=== PATIENT | male | born 1990 | race Two or more races ===

== ENCOUNTER 2020-06-03 05:40 | Emergency (ER) | payer MEDICAID, OTHER ==
[~2020-06-03] VITALS: Ht 172.7 cm; Wt 81.6 kg
--- NOTE | 2020-06-03 05:45 | NUR ---
PT BIBEMS FOR BIZARRE BEHAVIOR S/P TAKING AN UNKNOWN PILL. PT DENIES SI/HI. PT AAOX4, RESPIRATIONS EVEN AND UNLABORED ON RA W/ NAD NOTED. PT CONNECTED TO THE SUBSTANCE ABUSE CLINICIAN AND POX.
--- NOTE | 2020-06-03 06:09 | NUR ---
PLANISHING PRESS OPERATOR AT BEDSIDE FOR BLOOD DRAW
[2020-06-03] MEDS ORDERED: OLANZAPINE 10 MG VIAL IM ONE ×2 (06:20→06:30)
[2020-06-03 06:27] LABS: BASOPHILS % (AUTO) 0.4 % (0.0-2.0); EOSINOPHILS % (AUTO) 0.1 % (0.0-6.0); HEMATOCRIT 43 % (39-51); HEMOGLOBIN 14.2 g/dL (13.5-17.5); LYMPHOCYTES # (AUTO) 1.8 /CMM (0.8-4.8); LYMPHOCYTES % (AUTO) 28.7 % (20.0-44.0); MEAN CORPUSCULAR HGB CONC 33 g/dl (31.0-36.0); MEAN CORPUSCULAR VOLUME 94 fL (80-96); MONOCYTES # (AUTO) 0.5 /CMM (0.1-1.30); MONOCYTES % (AUTO) 8.4 % (2.0-12.0); NEUTROPHILS # (AUTO) 3.9 /CMM (1.8-8.9); NEUTROPHILS % (AUTO) 62.4 % (43.0-81.0); PLATELET COUNT (AUTO) 240 /CMM (150-450); RED BLOOD CELL COUNT(AUTO) 4.53 MIL/uL (4.5-6.0); WHITE BLOOD COUNT (AUTO) 6.3 K/uL (4.3-11.0)
[2020-06-03 06:43] LABS: ALANINE AMINOTRANSFERASE 71 U/L (12-78); ALBUMIN 4.3 g/dL (3.4-5.0); ALCOHOL, BLOOD < 3 mg/dL (0-0); ALKALINE PHOSPHATASE 56 U/L (46-116); ASPARTATE AMINOTRANSFERASE 43 U/L (15-37); BILIRUBIN,DIRECT 0.5 mg/dL (0.0-0.2); BILIRUBIN,TOTAL 1.6 mg/dL (0.2-1.0); CALCIUM, SERUM 9.2 mg/dL (8.5-10.1); CARBON DIOXIDE 25 mmol/L (21-32); CHLORIDE 102 mmol/L (98-107); GLUCOSE 77 mg/dL (74-106); POTASSIUM 3.4 mmol/L (3.5-5.1); SODIUM SERUM 141 mmol/L (136-145); TOTAL PROTEIN, SERUM 8.2 g/dL (6.4-8.2); UREA NITROGEN, BLOOD 23 mg/dL (7-18)
[2020-06-03 06:46] LABS: ACETAMINOPHEN 0 ug/ml (10-30)
--- NOTE | 2020-06-03 07:17 | NUR ---
PT PLACED ON 2 LPM VIA N/C FOR SUPPLEMENTAL O2.
--- NOTE | 2020-06-03 13:00 | NUR ---
PT PROVIDED W/ MEAL TRAY.
--- NOTE | 2020-06-03 14:05 | NUR ---
PT IS AWAKE. VERBALLY RESPONSIVE. AMBULATORY TO THE BATHROOM. STEADY GAIT. DENIES HI/SI AWAITING PSYCH EVAL.
--- NOTE | 2020-06-03 14:58 | NUR ---
DAYO RN AT BEDSIDE FOR FOR PSYCH EVAL.
[2020-06-03 15:07] LABS: BILIRUBIN,URINE SMALL (NEGATIVE); COLOR,URINE YELLOW (YELLOW); LEUKOCYTE ESTERASE ,URINE NEGATIVE (NEGATIVE); NITRITE, URINE NEGATIVE (NEGATIVE); PROTEIN,URINE TRACE mg/dl (NEGATIVE); UGLUCOSE NEGATIVE (NEGATIVE); UROBILINOGEN,URINE 0.2 EU/dL (0.2)
[2020-06-03 15:18] LABS: BACTERIA,URINE None seen /HPF (None Seen); MUCUS,URINE Few /LPF (None Seen); RBC,URINE 0-2 /HPF (0-2); SQUAMOUS EPITHELIAL CELL,UR 0-2 /HPF (None Seen); WBC,URINE 0-2 /HPF (0-3)
--- NOTE | 2020-06-03 15:24 | NUR ---
RECEIVED RESULTS FROM MAIN LAB: RAPID COVID NEGATIVE
--- NOTE | 2020-06-03 17:47 | NUR ---
PT AWAKE. AAOX3. AMBULATORY W/ STEADY GAIT. DISCHARGE IN STABLE CONDITION.
[2020-06-03 17:48] VITALS: BP 112/66
== END 2020-06-03 17:49 | disposition home or self-care (01) ==
LOC: ER 05:43
DX: T65.91XA Toxic effect of unspecified substance, accidental (unintentional), initial encounter (principal); R41.82 Altered mental status, unspecified; Y92.89 Other specified places as the place of occurrence of the external cause; Z59.0 Homelessness; F15.10 Other stimulant abuse, uncomplicated; F11.10 Opioid abuse, uncomplicated; F12.10 Cannabis abuse, uncomplicated; Z20.822 Contact with and (suspected) exposure to COVID-19
CPT/HCPCS: 36415; 80048; 80076; 80299; 80307; 80320; 81001; 85025; 87426; 96372; 99285; C9803; J3490; G0480

== ENCOUNTER 2020-08-11 16:14 | Emergency (ER) | payer MEDICAID, SELFPAY ==
[~2020-08-11] VITALS: Ht 172.7 cm; Wt 72.6 kg
--- NOTE | 2020-08-11 16:20 | NUR ---
PT IS EATING, NOT YET READY READY TO BE TRIAGE
[2020-08-11 16:41] VITALS: BP 114/51
--- NOTE | 2020-08-11 17:00 | NUR ---
COVID SPECIMEN OBTAINED AND SENT TO LAB.
--- NOTE | 2020-08-11 17:04 | NUR ---
Patient given written and verbal discharge instructions. Patient verbalizes understanding of instructions. Patient is ambulatory with steady gait. Refuses offer of senior living placement. Patient given list of available shelters in surrounding area.
== END 2020-08-11 17:07 | disposition home or self-care (01) ==
LOC: ER 16:59
DX: J02.9 Acute pharyngitis, unspecified (principal); R05 Cough; R06.00 Dyspnea, unspecified; Z20.822 Contact with and (suspected) exposure to COVID-19

== ENCOUNTER 2020-08-16 14:58 | Emergency (ER) | payer SELFPAY ==
[~2020-08-16] VITALS: Ht 172.7 cm; Wt 86.2 kg
--- NOTE | 2020-08-16 15:18 | NUR ---
pt johnathan accompanied by pd. 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 pt appears to be drug intoxicated. pt verbally responsive but is acting bizzare and restless. awaiting yaquelin saldaña.
--- NOTE | 2020-08-16 16:06 | NUR ---
dr bradshaw at bedside for eval.
[2020-08-16 16:27] LABS: BASOPHILS # (AUTO) 0.3 /CMM (0.0-0.2); BASOPHILS % (AUTO) 1.7 % (0.0-2.0); EOSINOPHILS % (AUTO) 0.3 % (0.0-6.0); HEMATOCRIT 40 % (39-51); HEMOGLOBIN 13.1 g/dL (13.5-17.5); LYMPHOCYTES # (AUTO) 0.6 /CMM (0.8-4.8); MEAN CORPUSCULAR HGB CONC 33 g/dl (31.0-36.0); MEAN CORPUSCULAR VOLUME 96 fL (80-96); MONOCYTES # (AUTO) 1.1 /CMM (0.1-1.30); NEUTROPHILS # (AUTO) 13.3 /CMM (1.8-8.9); PLATELET COUNT (AUTO) 322 /CMM (150-450); RED BLOOD CELL COUNT(AUTO) 4.14 MIL/uL (4.5-6.0); WHITE BLOOD COUNT (AUTO) 15.3 K/uL (4.3-11.0)
[2020-08-16 16:36] LABS: CALCIUM, SERUM 9.4 mg/dL (8.5-10.1); CARBON DIOXIDE 23 mmol/L (21-32); CHLORIDE 100 mmol/L (98-107); CREATININE 1.3 mg/dL (0.6-1.3); GLUCOSE 57 mg/dL (74-106); POTASSIUM 4.7 mmol/L (3.5-5.1); SODIUM SERUM 136 mmol/L (136-145); UREA NITROGEN, BLOOD 33 mg/dL (7-18)
--- NOTE | 2020-08-16 16:40 | NUR ---
dr bradshaw made aware of patients blood glucose. pt was offered orange juice but refusing. no new orders at this time will continue to monitor.
[2020-08-16 16:42] LABS: ACETAMINOPHEN < 2 ug/ml (10-30); ALANINE AMINOTRANSFERASE 139 U/L (12-78); ALBUMIN 3.7 g/dL (3.4-5.0); ALCOHOL, BLOOD < 3 mg/dL (0-0); ALKALINE PHOSPHATASE 65 U/L (46-116); ASPARTATE AMINOTRANSFERASE 445 U/L (15-37); BILIRUBIN,DIRECT 0.4 mg/dL (0.0-0.2); BILIRUBIN,TOTAL 1.7 mg/dL (0.2-1.0); TOTAL PROTEIN, SERUM 7.2 g/dL (6.4-8.2)
--- NOTE | 2020-08-16 17:01 | NUR ---
pt unable to provide urine sample due to current state. ermd aware.
--- NOTE | 2020-08-16 18:25 | NUR ---
urine sample collected. sent to lab.
[2020-08-16 18:37] LABS: BILIRUBIN,URINE NEGATIVE (NEGATIVE); COLOR,URINE YELLOW (YELLOW); LEUKOCYTE ESTERASE ,URINE NEGATIVE (NEGATIVE); NITRITE, URINE NEGATIVE (NEGATIVE); PH,URINE 5.5 (5.0-8.0); PROTEIN,URINE TRACE mg/dl (NEGATIVE); UGLUCOSE NEGATIVE (NEGATIVE); UROBILINOGEN,URINE 0.2 EU/dL (0.2)
--- NOTE | 2020-08-16 18:41 | NUR ---
pt awake, provided w/ meal tray. cleared for discharge pending blood sugar check
[2020-08-16 18:51] LABS: BACTERIA,URINE 1+ /HPF (None Seen); RBC,URINE 21-50 /HPF (0-2); SQUAMOUS EPITHELIAL CELL,UR 0-2 /HPF (None Seen); URINE AMORPHOUS URATE Few /HPF (None Seen)
--- NOTE | 2020-08-16 19:16 | NUR ---
pt aaox3, verbally responsive. homeless waiver signed. discharged in stable condition.
[2020-08-16 19:17] VITALS: BP 118/84
[2020-08-16 20:05] LABS: LYMPHOCYTES % (MANUAL) 6 % (16-48); MONOCYTES % (MANUAL) 4 % (0-11.0); NEUTROPHILS % (MANUAL) 90 (42-76)
== END 2020-08-16 19:17 | disposition home or self-care (01) ==
LOC: ER 15:17
DX: R46.1 Bizarre personal appearance (principal); Z98.890 Other specified postprocedural states
CPT/HCPCS: 36415; 80048-TC; 80076-TC; 81001; 82962-TC; 85025-TC; G0480

== ENCOUNTER 2020-09-02 06:10 | Emergency (ER) | payer MEDICAID, SELFPAY ==
[~2020-09-02] VITALS: Ht 378.5 cm; Wt 77.1 kg
[2020-09-02 06:11] VITALS: BP 117/68
--- NOTE | 2020-09-02 06:12 | NUR ---
PT AAOX4. AMBULATORY WITH STEADY GAIT. BIBSELF C/P NON RADIATING CP SINCE 10PM, WORSE UPON TRAIGE. PT PLACED IN BED 10 ON MONITOR AND PULSE OX. VSS. NO ACUTE DISTRESS NOTED. EMT AT BEDSIDE FOR EKG.
[2020-09-02] MEDS ORDERED: IBUPROFEN 400 MG TABLET ONE (06:23)
[2020-09-02] MEDS ORDERED: IBUPROFEN 400 MG TABLET PO ONE (06:30)
--- NOTE | 2020-09-02 07:51 | NUR ---
Assume care report given by Mary
[2020-09-02] MEDS ORDERED: IBUP-1957 PO (07:53)
--- NOTE | 2020-09-02 08:52 | NUR ---
Dc home instruction given by Ana Rosa GREEN .
--- NOTE | 2020-09-02 08:54 | NUR ---
Patient awake alert ambulatory no sob no Chest pain agrees to follow up PMD in AM .
== END 2020-09-02 08:54 | disposition home or self-care (01) ==
LOC: ER 06:12
DX: R07.89 Other chest pain (principal); F10.10 Alcohol abuse, uncomplicated; F17.200 Nicotine dependence, unspecified, uncomplicated; Y90.9 Presence of alcohol in blood, level not specified; Z98.890 Other specified postprocedural states; Z79.899 Other long term (current) drug therapy
CPT/HCPCS: 71045-TC